=== PATIENT | female | born 1965 | race Caucasian/White ===

== ENCOUNTER → 2017-10-05 07:25 | Outpatient (CLI) | payer SELFPAY ==
--- NOTE | 2017-10-05 | IMM_PTH ---
PATIENT: NAHUM CANDELARIO LOC: TRUE U#:[id number] AGE/SX: 60/F ROOM: RE10/05/[address]: Dr. Pawel Larry MD : 1965 BED: DIS: SPEC #: [id number] RECD: 10/06/17 11:59 STATUS: MI REKen #: [id number] ANNY: 10/05/17 00:[address]: Pawel Larry DEPT: IMMUNOHISTOCHEMISTRY RECD BY: Shell Peacokc ENTERED: 10/06/17 12:00 SP TYPE: IMMUNO OTHR DR: Luisana Resendiz PA-C Tissues: Left breast, NOS Procedures: Calponin-1(initial) CALPONIN-1 (add) P40 (add) PHYSICIAN & INSTITUTION [place] [address] SPECIMEN INFORMATION: Tissue Source: Left breast Clinical Info: Left breast microcalcifications Specimen Number: [id number] #1-4 CPT code: 77382, 19126 x7 METHODOLOGY: Deparaffinized sections of prefer/formalin-fixed tissue or PAP/DQ stained slides are incubated with monoclonal/polyclonal antibodies/oligonucleotide probes. Localization is made via biotin free immunoperoxidase method. Appropriate controls are performed and reacted as expected. Results on target cell population are indicated in the following table: RESULTS: ANTIBODY / CLONE RESULT Block 1 P40 (BC28) positive Calponin-1 (VA158K) positive Block 2 P40 (BC28) positive Calponin-1 (DD610F) positive Block 3 P40 (BC28) positive Calponin-1 (RV027L) positive Block 4 P40 (BC28) positive Calponin-1 (JB370K) positive These tests were developed and their performance characteristics determined by [facility]. They may not have been cleared or approved by the U.S. Food and Drug Administration. The FDA has determined that such clearance or approval is not necessary. INTERPRETATION: Left breast, stereotactic needle core biopsy: Benign breast tissue. AM:dillan 10/09/17
--- NOTE | 2017-10-05 | BRBX_PTH ---
PATIENT: NAHUM CANDELARIO LOC: TRUE U#:[id number] AGE/SX: 60/F ROOM: RE10/05/[address]: Dr. Pawel Larry MD : 1965 BED: DIS: SPEC #: [id number] RECD: 10/05/17 14:26 STATUS: MI CHAVARRIA #: [id number] ANNY: 10/05/17 00:[address]: Pawel Larry DEPT: SURGICAL PATHOLOGY RECD BY: Josafat Kothari ENTERED: 10/05/17 14:27 SP TYPE: BREAST BX OTHR DR: Luisana Resendiz PA-C Tissues: Left breast, NOS Procedures: Surgery Specimen Level IV HEADER OPERATION: Left stereotactic breast biopsy PRE-OP DIAGNOSIS: Left breast 2 o?clock mid depth microcalcifications TISSUE SUBMITTED: Left breast core tissue ISCHEMIC TIME: 1 minute FIXATION TIME: 11.5 hours MICROSCOPIC DIAGNOSIS Left breast at 2 o?clock, stereotactic needle core biopsy: Hyalinized fibroadenoma with clustered microcalcifications. Focal glandular involutional change. No evidence of malignancy. AM:dillan 10/06/17 COMMENT Immunohistochemistry ([id number]) supports the above diagnosis. MICROSCOPIC DESCRIPTION Slides are reviewed. GROSS DESCRIPTION Received is one container labeled with the patient's name and not further designated. The specimen consists of multiple elongated fragments of rajput-yellow fibroadipose tissue that in aggregate measure 5 x 3 x 0.6 cm. The entire specimen is submitted in four cassettes. / SJ:dillan 10/05/17 TC:5 CPT: 82411
--- NOTE | 2017-10-05 09:19 | PCM.OPRPT ---
Problem List (1) Microcalcification of left breast on mammography Status: Acute Report of Operation Date of Procedure: 10/05/17 Pre-Operative Diagnosis: r92.0 left breast microcalcifications Post-Operative Diagnosis: Same Surgery/Procedure Performed:: 07046 Left stereotactic breast biopsy Type of Anesthesia:: Local Description of Procedure: Patient was brought into the mammography unit. Placed in the supine position on the fissure table. The left breast was brought down through the opening. A lateral to medial view was obtained. ?15? views were obtained. I targeted on the microcalcifications. I prepped the breast with Betadine. I injected 1% lidocaine plain. I made a small skin maura. The needle was placed in the prefire position. 2 more stereotactic views were obtained. We were targeting the microcalcifications appropriately. I fired the needle and took 360? circumferential biopsies. I x-rayed my specimen and microcalcifications were present. I backed the needle off 7 mm and placed a titanium clip. I shot another views showing the titanium clip to be in good placement. Patient was taken out of the machine Steri-Strips are applied sterile dressings were applied and the patient tolerated the procedure well.
--- NOTE | 2017-10-05 09:24 | OP.PCM_ITS ---
Problem List (1) Microcalcification of left breast on mammography Status: Acute Report of Operation Date of Procedure: 10/05/17 Pre-Operative Diagnosis: r92.0 left breast microcalcifications Post-Operative Diagnosis: Same Surgery/Procedure Performed:: 08112 Left stereotactic breast biopsy Type of Anesthesia:: Local Description of Procedure: Patient was brought into the mammography unit. Placed in the supine position on the fissure table. The left breast was brought down through the opening. A lateral to medial view was obtained. ?15? views were obtained. I targeted on the microcalcifications. I prepped the breast with Betadine. I injected 1% lidocaine plain. I made a small skin maura. The needle was placed in the prefire position. 2 more stereotactic views were obtained. We were targeting the microcalcifications appropriately. I fired the needle and took 360? circumferential biopsies. I x-rayed my specimen and microcalcifications were present. I backed the needle off 7 mm and placed a titanium clip. I shot another views showing the titanium clip to be in good placement. Patient was taken out of the machine Steri-Strips are applied sterile dressings were applied and the patient tolerated the procedure well.
== END ==
PROVIDERS: Family Provider Family Medicine; PCP Family Medicine; Visit Provider Surgery
DX: D24.2 Benign neoplasm of left breast (principal); R92.0 Mammographic microcalcification found on diagnostic imaging of breast; I34.1 Nonrheumatic mitral (valve) prolapse; I47.1 Supraventricular tachycardia
CPT/HCPCS: 19081; 88305; 88341; 88342; J7050; A4648

== ENCOUNTER → 2017-10-12 10:08 | Outpatient (CLI) | payer OTHER, SELFPAY ==
--- NOTE | 2017-10-12 | IMM_PTH ---
PATIENT: NAHUM CANDELARIO LOC: [facility] U#:[id number] AGE/SX: 60/F ROOM: RE10/12/[address]: Dr. Pawel Larry MD : 1965 BED: DIS: SPEC #: [id number] RECD: 10/13/17 10:51 STATUS: MI REQ #: [id number] ANNY: 10/12/17 00:[address]: Pawel Larry DEPT: IMMUNOHISTOCHEMISTRY RECD BY: Shell Peacock ENTERED: 10/13/17 10:54 SP TYPE: IMMUNO OTHR DR: Luisana Resendiz PA-C Tissues: Left breast, NOS Procedures: CD20 (add) CD45 (add) CD5 (add) CD79A (add) CD3 (initial) PHYSICIAN & INSTITUTION [place] [address] SPECIMEN INFORMATION: Tissue Source: Left breast 2 o?clock Clinical Info: Abnormal mammogram Specimen Number: [id number] CPT code: 58601, 10609 x4 METHODOLOGY: Deparaffinized sections of prefer/formalin-fixed tissue or PAP/DQ stained slides are incubated with monoclonal/polyclonal antibodies/oligonucleotide probes. Localization is made via biotin free immunoperoxidase method. Appropriate controls are performed and reacted as expected. Results on target cell population are indicated in the following table: RESULTS: ANTIBODY / CLONE RESULT CD3 (PS1) positive CD5 (SP10) positive CD20 (L26) positive CD79a (11E3) positive CD45 (RP2/18) positive These tests were developed and their performance characteristics determined by [facility]. They may not have been cleared or approved by the U.S. Food and Drug Administration. The FDA has determined that such clearance or approval is not necessary. INTERPRETATION: Left breast 2 o?clock, ultrasound-guided needle core biopsy: Lymph node tissue, polytypic in nature, favor benign. SJ:marshall
--- NOTE | 2017-10-12 08:00 | BRBX_PTH ---
PATIENT: NAHUM CANDELARIO LOC: [facility] U#:[id number] AGE/SX: 60/F ROOM: RE10/12/[address]: Dr. Pawel Larry MD : 1965 BED: DIS: SPEC #: [id number] RECD: 10/12/17 09:55 STATUS: MI AURA #: [id number] ANNY: 10/12/17 08:[address]: Pawel Larry DEPT: SURGICAL PATHOLOGY RECD BY: Maryam Saavedra ENTERED: 10/12/17 11:05 SP TYPE: BREAST BX OTHR DR: Luisana Resendiz PA-C Tissues: Left breast, NOS Procedures: Surgery Specimen Level IV HEADER OPERATION: Ultrasound guided needle core biopsy, left breast PRE-OP DIAGNOSIS: Abnormal mammogram, R92.8 TISSUE SUBMITTED: Needle core biopsy, left breast at 2 o?clock position ISCHEMIC TIME: 30 seconds FIXATION TIME: 11 hours MICROSCOPIC DIAGNOSIS Left breast, ultrasound-guided needle core biopsy: Benign intramammary lymph node tissue with reactive changes. Breast tissue is not identified in the submitted specimen. Negative for malignancy. LYNNE:dillan 10/13/17 COMMENT Immunohistochemistry ([id number]) supports the above diagnosis. Please make reference to previous specimen ([id number]) left breast at 2 o?clock, stereotactic needle core biopsy with diagnosis of hyalinized fibroadenoma. Case has been reviewed in consultation with Dr. Kwon who concurs with the above diagnosis. IDC:AM MICROSCOPIC DESCRIPTION Slides are reviewed. GROSS DESCRIPTION Received in fixative is one container labeled with the patient's name and designated needle core biopsy left breast. The specimen consists of multiple elongated fragments of rajput-yellow fibroadipose tissue that in aggregate measure 1 x 0.2 x 0.1 cm. The entire specimen is submitted in one cassette. / LYNNE:dillan 10/12/17 TC:5 CPT: 90001
== END ==
PROVIDERS: Family Provider Family Medicine; PCP Family Medicine; Visit Provider Surgery
DX: R92.8 Other abnormal and inconclusive findings on diagnostic imaging of breast (principal)
CPT/HCPCS: 88305; 88341; 88342